=== PATIENT | female | born 1990 | race Hispanic/Latino ===

== ENCOUNTER 2019-01-09 01:21 | Observation (INO) | payer BC, MEDICAID ==
[~2019-01-09] VITALS: Ht 162.6 cm; Wt 106.1 kg
[~2019-01-09 01:21] MED LIST: DEPO IM; POLY17PO29 PO
[2019-01-09] MEDS ORDERED: LACTATED RINGERS 1000ML 1,000 ML IV PRN (01:28)
[2019-01-09 01:57] LABS: APPEARANCE,URINE Clear (CLEAR); BILIRUBIN,URINE Negative (NEGATIVE); COLOR,URINE Yellow (YELLOW); GLUCOSE, URINE (UA) 250 mg/dL (NEGATIVE); KETONES,URINE Negative (NEGATIVE); LEUKOCYTE ESTERASE ,URINE Trace (NEGATIVE); NITRATE,URINE Negative (NEGATIVE); OCCULT BLOOD,URINE Negative (NEGATIVE); PH,URINE 5.5 (5.0-8.0); PROTEIN,URINE Negative (NEGATIVE)
[2019-01-09 02:04] LABS: AMPHET/METH SCREEN,URINE NEGATIVE (NEGATIVE); BARBITURATE SCREEN, URINE NEGATIVE (NEGATIVE); BENZODIAZEPINES SCREEN,URINE NEGATIVE (NEGATIVE); CANNABINOID SCREEN,URINE NEGATIVE (NEGATIVE); COCAINE SCREEN,URINE NEGATIVE (NEGATIVE); OPIATE SCREEN,URINE NEGATIVE (NEGATIVE); PHENCYCLIDINE SCREEN,URINE NEGATIVE (NEGATIVE)
[2019-01-09] MEDS ORDERED: MAGNESIUM SULFATE 1,000 ML IV PRN (02:12)
[2019-01-09] MEDS ORDERED: CALCIUM GLUCONATE 1 GM/10 ML VIAL IV PRN (02:15)
[2019-01-09] MEDS ORDERED: MAGNESIUM 4GM PREMIX 100ML 100 ML IV SCH (02:15)
[2019-01-09] MEDS ORDERED: MAGNESIUM 4GM PREMIX 100ML 100 ML IV ONE (02:17)
[2019-01-09] MEDS ORDERED: AMPICILLIN 2GM+NS 100ML 100 ML IV ONE (02:17)
[2019-01-09] MEDS ORDERED: MAGNESIUM SULFATE 1,000 ML IV ONE (02:18)
[2019-01-09] MEDS ORDERED: PHARMACY COMMUNICATION MISC SCH (02:30)
[2019-01-09 02:31] LABS: BACTERIA,URINE Few /HPF (None Seen); RBC,URINE 0-1 /HPF (0-1); SQUAMOUS EPITHELIAL CELL,UR Moderate /HPF (0-2)
[2019-01-09 02:39] LABS: HEMATOCRIT 28.3 % (36-48); MEAN CORPUSCULAR HEMOGLOBIN 24.9 pg (27.0-33.0); MEAN CORPUSCULAR HGB CONC 31.8 g/dL (32.0-36.0); MEAN CORPUSCULAR VOLUME 78.3 fL (79-99); NUCLEATED RED BLOOD CELLS 0.5 % (0.0-0.19); PLATELET COUNT (AUTO) 180 K/uL (130-400); RED BLOOD CELL COUNT(AUTO) 3.62 MIL/uL (4.00-5.50); RED CELL DISTRIBUTION WIDTH 16.1 % (11.0-15.5); WHITE BLOOD COUNT (AUTO) 11.1 K/uL (4.8-10.8)
[2019-01-09] MEDS ORDERED: CELESTONE SOLUSPAN 6 MG/ML 5ML VIAL ONE (03:01)
[2019-01-09] MEDS ORDERED: CELESTONE SOLUSPAN 6 MG/ML 5ML VIAL IM SCH (03:30)
[2019-01-09 07:17] LABS: RAPID PLASMA REAGIN NONREACTIVE (NONREACTIVE)
[2019-01-09] MEDS: AMPICILLIN 2GM+NS 100ML 100 ML IV SCH ×3 (08:29→21:08)
[2019-01-10] MEDS: AMPICILLIN 2GM+NS 100ML 100 ML IV SCH (03:13)
[2019-01-10 08:13] LABS: HEPATITIS Bs ANTIGEN SCREEN P Negative (Negative)
== END 2019-01-10 12:45 | disposition home or self-care (01) ==
LOC: EDH 01:21 → LDH 01:22
PROVIDERS: ADMIT Specialist; ATTEND Specialist
DX: O60.03 Preterm labor without delivery, third trimester (principal); O21.2 Late vomiting of pregnancy; O99.323 Drug use complicating pregnancy, third trimester; F19.90 Other psychoactive substance use, unspecified, uncomplicated; O26.893 Other specified pregnancy related conditions, third trimester; R51 Headache; Z3A.33 33 weeks gestation of pregnancy; Z79.899 Other long term (current) drug therapy
CPT/HCPCS: 36415; 80305; 81001; 85027; 86592; 86701; 86850; 86900; 86901; 87340; 87390; 96365; 96366 ×2; 96368; 96372; 96375; 99283; A4344; A4510; A4600; G0378; J0290 ×5; J0702 ×2; J3475 ×3; J7120; 96360; 96361

== ENCOUNTER 2019-01-27 03:45 | Observation (INO) | payer BC, MEDICAID ==
[~2019-01-27] VITALS: Ht 162.6 cm; Wt 107.5 kg
[2019-01-27 04:00] VITALS: BP 142/91
[2019-01-27] MEDS ORDERED: LACTATED RINGERS 1000ML IV PRN (04:00)
[2019-01-27 04:25] LABS: APPEARANCE,URINE Clear (CLEAR); BILIRUBIN,URINE Negative (NEGATIVE); COLOR,URINE Yellow (YELLOW); GLUCOSE, URINE (UA) Negative (NEGATIVE); KETONES,URINE Negative (NEGATIVE); LEUKOCYTE ESTERASE ,URINE Negative (NEGATIVE); NITRATE,URINE Negative (NEGATIVE); OCCULT BLOOD,URINE Negative (NEGATIVE); PH,URINE 5.5 (5.0-8.0); PROTEIN,URINE POS 1+ mg/dL (NEGATIVE); UROBILINOGEN,URINE 0.2 mg/dL (0.2-1.0)
[2019-01-27 04:35] LABS: AMPHET/METH SCREEN,URINE NEGATIVE (NEGATIVE); BARBITURATE SCREEN, URINE NEGATIVE (NEGATIVE); BENZODIAZEPINES SCREEN,URINE NEGATIVE (NEGATIVE); CANNABINOID SCREEN,URINE NEGATIVE (NEGATIVE); COCAINE SCREEN,URINE NEGATIVE (NEGATIVE); OPIATE SCREEN,URINE NEGATIVE (NEGATIVE); PHENCYCLIDINE SCREEN,URINE NEGATIVE (NEGATIVE)
[2019-01-27 04:47] LABS: BACTERIA,URINE None Seen /HPF (None Seen); MUCUS,URINE Rare LPF (None Seen); RBC,URINE None Seen /HPF (0-1); SQUAMOUS EPITHELIAL CELL,UR Few /HPF (0-2); WBC,URINE None Seen /HPF (0-1)
[2019-01-27] MEDS ORDERED: TERBUTALINE SULFATE VIAL 1MG/ML SQ SCH (05:15)
[2019-01-27] MEDS ORDERED: LACTATED RINGERS 1000ML 1,000 ML IV SCH (05:15)
[2019-01-27] MEDS ORDERED: TERBUTALINE SULFATE VIAL 1MG/ML SQ ONE (05:19)
[2019-01-27] MEDS ORDERED: AMPICILLIN 2GM+NS 100ML 100 ML IV ONE (06:27)
[2019-01-27] MEDS ORDERED: MAGNESIUM SULFATE 1,000 ML IV ONE (06:27)
[2019-01-27] MEDS ORDERED: MAGNESIUM SULFATE 1,000 ML IV PRN (06:27)
[2019-01-27] MEDS ORDERED: MAGNESIUM 4GM PREMIX 100ML 100 ML IV ONE (06:27)
[2019-01-27] MEDS ORDERED: MAGNESIUM 4GM PREMIX 100ML 100 ML IV SCH (06:30)
[2019-01-27] MEDS ORDERED: AMPICILLIN 2GM+NS 100ML 100 ML IV SCH (06:30)
[2019-01-27] MEDS ORDERED: PHARMACY COMMUNICATION MISC SCH (06:30)
[2019-01-27] MEDS ORDERED: CELESTONE SOLUSPAN 6 MG/ML 5ML VIAL ONE ×2 (06:31→06:39)
[2019-01-27] MEDS ORDERED: CELESTONE SOLUSPAN 6 MG/ML 5ML VIAL IM SCH (06:39)
[2019-01-27 07:00] LABS: HEMATOCRIT 26.8 % (36-48); MEAN CORPUSCULAR HEMOGLOBIN 23.9 pg (27.0-33.0); MEAN CORPUSCULAR HGB CONC 31.2 g/dL (32.0-36.0); MEAN CORPUSCULAR VOLUME 76.6 fL (79-99); NUCLEATED RED BLOOD CELLS 0.3 % (0.0-0.19); PLATELET COUNT (AUTO) 162 K/uL (130-400); RED CELL DISTRIBUTION WIDTH 16.6 % (11.0-15.5); WHITE BLOOD COUNT (AUTO) 12.1 K/uL (4.8-10.8)
[2019-01-27] MEDS: AMPICILLIN 1GM+NS 50ML 50 ML IV SCH ×4 (10:31→22:16)
[2019-01-27] MEDS ORDERED: ACETAMINOPHEN-CODEINE 300/30MG TAB PO PRN (13:00)
[2019-01-27] MEDS ORDERED: ONDANSETRON HCL 4 MG/2 ML VIAL IVP PRN (20:15)
[2019-01-27] MEDS ORDERED: PROMETHAZINE HCL 25 MG/ML 1ML AMPULE IM PRN (20:15)
[2019-01-27] MEDS ORDERED: ONDANSETRON HCL 4 MG/2 ML VIAL ONE (20:18)
[2019-01-28] MEDS: AMPICILLIN 1GM+NS 50ML 50 ML IV SCH (02:15)
[2019-01-28 06:26] LABS: HEPATITIS Bs ANTIGEN SCREEN P Negative (Negative)
[2019-01-29] MEDS ORDERED: FERR-82 PO (16:02)
== END 2019-01-28 11:25 | disposition home or self-care (01) ==
LOC: EDH 03:45 → LDH 03:56
PROVIDERS: ADMIT Specialist; ATTEND Specialist
DX: O60.03 Preterm labor without delivery, third trimester (principal); Z3A.35 35 weeks gestation of pregnancy; Z79.899 Other long term (current) drug therapy
CPT/HCPCS: 36415; 59025; 80305; 81001; 82947; 83735; 85027; 86592; 86850; 86900; 86901; 87340; 96365; 96366 ×2; 96368; 99284; A4314; A4510; A4600; G0378 ×3; J0290 ×7; J0702 ×2; J2405 ×2; J3105; J3475 ×3; J7120 ×3; 96360

== ENCOUNTER 2019-01-29 09:33 | Inpatient (IN) | payer BC, MEDICAID | END 2019-02-01 18:05 | disposition home or self-care (01) | LOC: LDH 09:33 → WSH 01-31 00:02 → LDH 01-31 00:02 → WSH 01-30 14:49 → LDH 11:54 → WSH 11:54 → LDH 01-30 14:49 → WSH 01-31 00:02 ==

== ENCOUNTER 2019-02-16 06:21 | Emergency (ER) | payer BC, MEDICAID ==
[~2019-02-16 06:21] MED LIST changes: -DEPO IM; +FERR-82 PO; -POLY17PO29 PO
[2019-02-16 06:47] LABS: APPEARANCE,URINE Clear (CLEAR); BILIRUBIN,URINE Negative (NEGATIVE); COLOR,URINE Yellow (YELLOW); GLUCOSE, URINE (UA) Negative (NEGATIVE); KETONES,URINE Negative (NEGATIVE); LEUKOCYTE ESTERASE ,URINE Small (NEGATIVE); NITRATE,URINE Negative (NEGATIVE); OCCULT BLOOD,URINE Small (NEGATIVE); PROTEIN,URINE Trace mg/dL (NEGATIVE)
[2019-02-16 07:00] LABS: BASOPHILS % (AUTO) 0.5 % (0.0-5.0); CREATININE 0.7 mg/dL (0.5-1.5); EOSINOPHILS % (AUTO) 1.3 % (0.0-8.0); HEMATOCRIT 31.2 % (36-48); LYMPHOCYTES % (AUTO) 31.5 % (21.0-51.0); MEAN CORPUSCULAR HEMOGLOBIN 24.1 pg (27.0-33.0); MEAN CORPUSCULAR HGB CONC 31.7 g/dL (32.0-36.0); MEAN CORPUSCULAR VOLUME 76.2 fL (79-99); MONOCYTES % (AUTO) 7.7 % (3.0-13.0); PLATELET COUNT (AUTO) 275 K/uL (130-400); POTASSIUM 3.9 mmol/L (3.5-5.1); RED BLOOD CELL COUNT(AUTO) 4.09 MIL/uL (4.00-5.50); WHITE BLOOD COUNT (AUTO) 8.8 K/uL (4.8-10.8)
[2019-02-16 07:05] LABS: ALBUMIN 3.2 g/dL (3.5-5.0); BILIRUBIN,TOTAL 0.2 mg/dL (0.2-1.0); MAGNESIUM 1.7 mg/dL (1.80-2.40); TOTAL PROTEIN, SERUM 7.5 g/dL (6.0-8.3)
[2019-02-16 07:24] LABS: BACTERIA,URINE None Seen /HPF (None Seen); MUCUS,URINE Many LPF (None Seen); RBC,URINE 0-1 /HPF (0-1)
[2019-02-16] MEDS ORDERED: METOCLOPRAMIDE 10 MG/2 ML VIAL ONE (07:32)
[2019-02-16] MEDS ORDERED: ONDANSETRON HCL 4 MG/2 ML VIAL ONE (07:32)
[2019-02-16] MEDS ORDERED: METHYLPREDNISOLONE SOD SUCC 125MG/2ML VIAL ONE (07:33)
[2019-02-16] MEDS ORDERED: KETOROLAC TROMETHAMINE 30MG/ML ONE (07:33)
[2019-02-16] MEDS ORDERED: SODIUM CHLORIDE 0.9% 1000ML 1,000 ML IV ONE (07:33)
[2019-02-16] MEDS ORDERED: MAGNESIUM OXIDE 400 MG TABLET PO ONE (08:08)
[2019-02-16] MEDS ORDERED: LABETALOL HCL 100 MG TABLET ONE (08:36)
== END 2019-02-16 08:48 | disposition home or self-care (01) ==
LOC: EDH 06:21
DX: G44.209 Tension-type headache, unspecified, not intractable (principal); I10 Essential (primary) hypertension; E83.42 Hypomagnesemia; R80.9 Proteinuria, unspecified; R11.2 Nausea with vomiting, unspecified
CPT/HCPCS: 36415; 80053; 81001; 81025; 82150; 83690; 83735; 85025; 87804 ×2; 96361; 96374; 96375; 99285; J1885; J2405; J2765; J2930; J7030

== ENCOUNTER 2021-08-22 22:51 | Emergency (ER) | payer BC, MEDICAID, OTHER ==
[~2021-08-22] VITALS: Ht 162.6 cm; Wt 106.1 kg
[2021-08-22] MEDS ORDERED: CEFTRIAXONE 1G VIAL ONE (23:07)
[2021-08-22] MEDS ORDERED: LIDOCAINE HCL-MPF 1% 2ML VIAL ONE (23:07)
[2021-08-22] MEDS ORDERED: IBUP-1552 PO (23:09)
[2021-08-22] MEDS ORDERED: AMOX1TAB16 PO (23:09)
[2021-08-22] MEDS ORDERED: ACETAMINOPHEN WITH CODEINE 1 TAB TAB ONE (23:11)
[2021-08-22 23:20] VITALS: BP 139/82
[2021-08-22] MEDS ORDERED: ACETAMINOPHEN WITH CODEINE 1 TAB TAB PO ONE (23:30)
[2021-08-22] MEDS ORDERED: CEFTRIAXONE 1G VIAL IM ONE (23:30)
== END 2021-08-22 23:24 | disposition home or self-care (01) ==
LOC: EDH 22:51
DX: H66.92 Otitis media, unspecified, left ear (principal); E66.9 Obesity, unspecified; Z79.1 Long term (current) use of non-steroidal anti-inflammatories (NSAID); Z68.41 Body mass index [BMI] 40.0-44.9, adult
CPT/HCPCS: 96372; 99284; J0696; J3490